=== PATIENT | female | born 1995 | race Caucasian/White ===

== ENCOUNTER 2022-06-09 01:31 | Inpatient (IN) ==
[2022-06-09] MEDS ORDERED: Lactated Ringers 1000 ml BAG 1,000 ML IV ONE (03:18)
[2022-06-09] MEDS ORDERED: Buffered Lidocaine 1% SYRIN 1 ml INTRADERM ONE (03:18)
[2022-06-09] MEDS ORDERED: Lactated Ringers 1000 ml BAG 1,000 ML IV SCH ×3 (04:00→12:00)
[2022-06-09 05:37] LABS: ABS Lymphocytes 1.1 10^3/ul (1.0-4.8); ABS Monocytes 0.9 10^3/ul (0-0.8); ABS Neutrophils 13.3 10^3/ul (1.5-7.7); Eosinophil % 0.1 %; Hematocrit 38 % (35-47); Hemoglobin 12.9 g/dL (12.0-16.0); Mean Corpuscular HGB Conc 34 g/dL (31-36); Mean Corpuscular Hemoglobin 27 pg (27-31); Mean Corpuscular Volume 80 fL (80-97); Mean Platelet Volume 10.2 fL (7.4-10.4); Platelet Count 152 10^3/uL (150-450); Red Blood Count 4.74 10^6 /uL (3.70-4.87); Red Cell Distribution Width 16 % (10-15); White Blood Count 15.3 10^3/uL (3.5-10.8)
[2022-06-09 06:14] LABS: Urine Benzodiazepine Screen None Detected (None Detect); Urine Cannabinoids Screen None Detected (None Detect); Urine Opiates Screen None Detected (None Detect)
[2022-06-09] MEDS ORDERED: OBEPIDURAL (200 ML) 200 ML EPIDURAL ONE (06:18)
[2022-06-09] MEDS ORDERED: Lidocaine 2% w/ EPI 1:200,000 MPF 20 ML SDV VIAL ONE (06:18)
[2022-06-09] MEDS: Lactated Ringers 1000 ml BAG 1,000 ML IV ONE ×2 (06:20→07:26)
[2022-06-09] MEDS ORDERED: Sodium Citrate/Citric Acid LIQ 15 ML UDC PO PRN (07:07)
[2022-06-09] MEDS ORDERED: Phenylephrine 40 mcg/mL 10mL (400mcg) SYRINGE IV PUSH PRN ×2 (07:07)
[2022-06-09] MEDS ORDERED: OBEPIDURAL (200 ML) 200 ML EPIDURAL SCH (08:00)
[2022-06-09] MEDS ORDERED: Oxytocin in LR 20,000 MILLI.UNIT/1,000 ML BAG IV ONE (08:40)
[2022-06-09 08:59] LABS: Urine Appearance Clear; Urine Bilirubin Negative (Negative); Urine Blood Trace (Intact) (Negative); Urine Color Yellow; Urine Glucose Negative (Negative); Urine Ketones Negative (Negative); Urine Nitrite Negative (Negative); Urine Protein Negative (Negative); Urine Specific Gravity 1.015 (1.005-1.030); Urine Urobilinogen 0.2 (Negative) (Negative)
[2022-06-09 09:09] LABS: Urine Bacteria Absent (Absent); Urine Red Blood Cell Absent (Absent); Urine Squamous Epithelial Cell Present (Absent); Urine White Blood Cell Trace(0-5/hpf) (Absent)
[2022-06-09] MEDS: Oxytocin in LR 20,000 MILLI.UNIT/1,000 ML BAG IV SCH (10:03)
[2022-06-09] MEDS ORDERED: RHO D Immune Globulin (HUMAN) 300 MCG = 1,500 I.U. INJ IM PRN (12:00)
[2022-06-09] MEDS ORDERED: Glycerin ADULT 2.4 gm SUPP PR PRN (12:00)
[2022-06-09] MEDS ORDERED: Oxytocin in LR 20,000 MILLI.UNIT/1,000 ML BAG IV SCH (12:00)
[2022-06-09] MEDS: Witch Hazel PAD JAR TOPICAL PRN (16:29)
[2022-06-09] MEDS: Dibucaine 1% OINT 28.35 GM TUBE PR PRN (16:29)
[2022-06-10 07:36] LABS: ABS Eosinophils 0.1 10^3/ul (0-0.6); ABS Lymphocytes 1.6 10^3/ul (1.0-4.8); ABS Monocytes 0.9 10^3/ul (0-0.8); ABS Neutrophils 9.2 10^3/ul (1.5-7.7); Eosinophil % 0.5 %; Hematocrit 30 % (35-47); Hemoglobin 10.1 g/dL (12.0-16.0); Lymphocyte % 13.3 %; Mean Corpuscular HGB Conc 34 g/dL (31-36); Mean Corpuscular Hemoglobin 27 pg (27-31); Mean Corpuscular Volume 81 fL (80-97); Mean Platelet Volume 9.2 fL (7.4-10.4); Platelet Count 140 10^3/uL (150-450); Red Blood Count 3.73 10^6 /uL (3.70-4.87); Red Cell Distribution Width 16 % (10-15); White Blood Count 11.8 10^3/uL (3.5-10.8)
[2022-06-10] MEDS: Oxytocin in LR 20,000 MILLI.UNIT/1,000 ML BAG IV SCH (19:33)
[2022-06-11 08:39] VITALS: BP 108/67
[2022-06-11] MEDS: Dibucaine 1% OINT 28.35 GM TUBE PR PRN (08:58)
[2022-06-11] MEDS: Witch Hazel PAD JAR TOPICAL PRN (08:58)
== END 2022-06-11 14:37 | disposition home or self-care (01) | DRG 560 ==
LOC: MCHOBOUT 01:31 → MCHOB 03:07
PROVIDERS: ADMIT Midwife; ATTEND Midwife

== ENCOUNTER 2024-04-22 12:36 | Inpatient (IN) ==
[2024-04-22] MEDS ORDERED: Lidocaine 1% VIAL 10 MG/ML 30 ML VIAL INJ PRN (15:13)
[2024-04-22 15:37] LABS: ABS Basophils 0.1 10^3/uL (0.0-0.1); ABS Lymphocytes 1.2 10^3/uL (1.0-4.8); ABS Monocytes 0.6 10^3/uL (0.0-0.9); ABS Neutrophils 7.7 10^3/uL (1.5-7.6); Eosinophil % 0.3 %; Hematocrit 36.8 % (35-45); Hemoglobin 12.5 g/dL (11.5-14.3); Lymphocyte % 12.3 %; Mean Corpuscular Hemoglobin 28.5 pg (27-33); Mean Corpuscular Hgb Conc 33.9 g/dL (31-36); Mean Corpuscular Volume 83.8 fL (80-97); Mean Platelet Volume 9.8 fL (7.5-11.2); Platelet Count 163 10^3/uL (150-450); Red Blood Count 4.39 10^6/uL (3.63-4.92); Red Cell Distribution Width 13.7 % (12-17); White Blood Count 9.6 10^3/uL (3.8-11.8)
[2024-04-22] MEDS: Buffered Lidocaine 1% SYRIN 1 ml INTRADERM ONE (15:40)
[2024-04-22 15:48] LABS: Urine Appearance Clear; Urine Bilirubin Negative (Negative); Urine Blood Negative (Negative); Urine Color Light-Yellow; Urine Glucose Negative (Negative); Urine Ketones Negative (Negative); Urine Nitrite Negative (Negative); Urine Protein Negative (Negative); Urine Urobilinogen Negative (Negative)
[2024-04-22 15:59] LABS: Urine Bacteria Absent /HPF (Absent); Urine Red Blood Cell Trace(0-2/hpf) /HPF (0-Trace); Urine Squamous Epithelial Cell Present /HPF (Absent); Urine White Blood Cell 1+(6-10/hpf) /HPF (0-Trace)
[2024-04-22] MEDS: Lactated Ringers 1000 ml BAG 1,000 ML IV SCH (16:03)
[2024-04-22] MEDS: Penicillin G Potassium IV 5,000,000 UNITS in NS 0.9% 100 ml BAG 100 ML IVPB ONE (16:04)
[2024-04-22 16:09] LABS: Urine Benzodiazepine Screen None Detected (None Detect); Urine Cannabinoids Screen None Detected (None Detect); Urine Opiates Screen None Detected (None Detect)
[2024-04-22] MEDS ORDERED: RHO D Immune Globulin (HUMAN) 300 MCG = 1,500 I.U. INJ IM PRN (19:35)
[2024-04-22] MEDS ORDERED: Glycerin ADULT 2.4 gm SUPP PR PRN (19:35)
[2024-04-22] MEDS: Dibucaine 1% OINT 28.35 GM TUBE PR PRN (20:43)
[2024-04-22] MEDS: Witch Hazel PAD JAR TOPICAL PRN (20:43)
[2024-04-22] MEDS: Oxytocin in LR 0 MILLI.UNIT/0 ML BAG IV ONE (21:44)
[2024-04-22] MEDS: Lactated Ringers 1000 ml BAG 1,000 ML IV ONE (21:45)
[2024-04-23 06:59] LABS: ABS Lymphocytes 1.1 10^3/uL (1.0-4.8); ABS Neutrophils 10.8 10^3/uL (1.5-7.6); ABS Nucleated RBC 0.01 10^3/ul; Eosinophil % 0.1 %; Hematocrit 35.3 % (35-45); Lymphocyte % 8.8 %; Mean Corpuscular Hemoglobin 28.5 pg (27-33); Mean Corpuscular Hgb Conc 34.1 g/dL (31-36); Mean Corpuscular Volume 83.5 fL (80-97); Mean Platelet Volume 9.9 fL (7.5-11.2); Platelet Count 164 10^3/uL (150-450); Red Blood Count 4.22 10^6/uL (3.63-4.92); Red Cell Distribution Width 13.7 % (12-17)
[2024-04-25 08:16] VITALS: BP 109/73
== END 2024-04-25 14:42 | disposition home or self-care (01) | DRG 560 ==
LOC: MCHOBOUT 12:36 → MCHOB 14:28
PROVIDERS: ADMIT Midwife; ATTEND Midwife